=== PATIENT | female | born 1950 | race Caucasian/White ===

== ENCOUNTER 2017-01-20 07:15 | Inpatient (IN) ==
[2017-01-20] MEDS: amLODIPine 5 MG TABLET PO SCH (21:18)
[2017-01-20] MEDS: Gabapentin 300 MG CAPSULE PO SCH (21:18)
[2017-01-20] MEDS: rOPINIRole 0.25 MG TABLET PO SCH (21:18)
[2017-01-20] MEDS: MAGNESIUM PO SCH (21:18)
[2017-01-20] MEDS: ZINC PO SCH (21:18)
[2017-01-20] MEDS: CALCIUM CARB PO SCH (21:18)
[2017-01-20] MEDS: *HR* Metformin 500 MG TABLET PO SCH (21:18)
[2017-01-20] MEDS: D3 PO SCH (21:18)
[2017-01-20] MEDS: traMADol 50 MG TABLET PO PRN (21:18)
[2017-01-21 05:44] LABS: Basophils % 0.3 %; Eosinophils # 0.3 K/mcL (0.0-0.6); Eosinophils % 3.8 %; Hematocrit 34.6 % (35.3-44.9); Hemoglobin 11.8 g/dL (11.5-15.4); Immature Granulocytes % 0.5 % (0-4); Lymphocytes % 22.4 %; Mean Corpuscular HGB Conc 34.1 g/dL (31.6-35.5); Mean Corpuscular Hemoglobin 29.2 pg (28.0-33.3); Mean Corpuscular Volume 85.6 fL (83.0-100.0); Mean Platelet Volume 9.5 fL (9.4-12.4); Monocytes # 0.8 K/mcL (0.0-1.3); Monocytes % 9.4 %; Neutrophils # 5.6 K/mcL (1.6-8.9); Platelet Count 417 K/mcL (140-400); Red Blood Count 4.04 M/mcL (3.82-4.97); Red Cell Distribution Width 13.5 % (11.5-14.5); Segmented Neutrophils % 63.6 %
[2017-01-21 05:46] LABS: INR 0.9
[2017-01-21 05:48] LABS: Activated Partial Thrombo Time 31.4 Seconds (26.0-36.0)
[2017-01-21 05:51] LABS: BUN/Creatinine Ratio 18 (6-26); Blood Urea Nitrogen 16 mg/dL (7-20); Calcium 9.1 mg/dL (8.6-10.8); Carbon Dioxide 21 mEq/L (19-29); Chloride 108 mEq/L (98-109); Glucose 223 mg/dL (70-99); Osmolality,Calculated 296 (280-300); Sodium 139 mEq/L (136-145); eGFR For African Americans > 60 (> 60); eGFR For Non-African Americans > 60 (> 60)
[2017-01-21] MEDS: *HR* Heparin 5,000 UNIT/ML VIAL SQ SCH ×3 (06:10→21:55)
[2017-01-21] MEDS: *HR* Metformin 500 MG TABLET PO SCH ×2 (08:47→18:22)
[2017-01-21] MEDS: Ibuprofen 200 MG TABLET PO PRN (08:48)
[2017-01-21] MEDS: (Krill/Om-3/Dha/Epa/Phospho/Ast [Krill Oil 1,000 Mg S) PO SCH (08:49)
[2017-01-21] MEDS: BuPROPion SR (12 HR) 100 MG TABLET PO SCH (08:50)
[2017-01-21] MEDS ORDERED: *HR* SitaGLIPtin 100 MG TABLET PO SCH (09:00)
--- NOTE | 2017-01-21 12:20 | Internal Med History&Physical ---
Date of Encounter: 01/21/17 Time of Encounter: 12:18 Assessment and Plan (1) Acute kidney injury Current visit: Yes Status: Chronic (2) Metatarsal bone fracture Current visit: Yes Status: Acute PT OT to work on transfer, safety, ambulation. Qualifiers: Encounter type: initial encounter Metatarsal bone: unspecified metatarsal Fracture type: closed Fracture alignment: nondisplaced Laterality: unspecified laterality Qualified Code(s): S92.309A - Fracture of unspecified metatarsal bone(s), unspecified foot, initial encounter for closed fracture (3) Talar fracture Current visit: Yes Status: Acute Qualifiers: Encounter type: initial encounter Fracture type: closed Talus location: unspecified portion of talus Fracture alignment: nondisplaced Laterality: unspecified laterality Qualified Code(s): S92.109A - Unspecified fracture of unspecified talus, initial encounter for closed fracture (4) Frequent falls Current visit: Yes Status: Chronic Frequent fall may be secondary to her frequent hypoglycemic spell Internal Medicine - H&P: HPI Admitted From: Intrahospital Transfer Plans for Post Hospital Care: Home History of present illness: Ms. Grey is a 66 year old female who initially presented to the ED on 522 for acute bilateral foot pain and multiple falls. He should not reports that she had been falling frequently. She thinks is because her blood sugar were dropped. She fell and knocked over a metal table which fell on her right foot. X-ray of the left foot showed an acute fracture involving the left fourth metatarsal, acute fracture involving the base of the fourth phalanx. X-ray of the foot showed acute fracture of the left talus. Foot fracture also noted. She is admitted here for rehabilitation. She is a history of hypertension, diabetes, history of TIA. Past Med Surg Social Fam HX - Past Medical History Medical history: diabetes, fibromyalgia, GERD, hypertension, TIA Psychiatric history: anxiety, depression - Past Surgical History Surgical History: breast surgery, cholecystectomy - Social History Smoking Status: Never smoker Smokeless Tobacco Status: No Alcohol use: none Drug use: none - Family History Mother Living Status: Hx Family Cardiac Disorders: Yes (heart attack) Hx Family Cancer: Yes (lymphatic sarcoma) Father Family Member Ethnicity: Non- Living Status: Hx Family Cardiac Disorders: No Hx Family Cancer: Yes (colon) Hx Family Endocrine Disorder: Yes (diabetes) Internal Medicine - H&P: Meds Calcium Carb/D3/Magnesium/Zinc [Elier Mag Zinc + D Tablet] 1 tab PO HS 01/16/17 [ History] Cyclobenzaprine HCl 10 mg PO HS 01/16/17 [History] Gabapentin [Neurontin] 300 mg PO QPM 01/16/17 [History] Ibuprofen [Advil] 200 mg PO BID PRN 01/16/17 [History] Krill/Om-3/Dha/Epa/Phospho/Ast [Krill Oil 1,000 mg Softgel] 1 cap PO DAILY 01/16 [History] Lisinopril [Zestril] 5 mg PO DAILY 01/16/17 [History] Metformin HCl [Metformin HCl ER] 500 mg PO BID 01/16/17 [History] Quetiapine Fumarate [Seroquel] 300 mg PO HS 01/16/17 [History] SitaGLIPtin [Januvia] 100 mg PO DAILY 01/16/17 [History] amLODIPine [Norvasc] 5 mg PO QPM 01/16/17 [History] buPROPion HCl [Bupropion HCl Sr] 200 mg PO DAILY 01/16/17 [History] rOPINIRole [Requip] 0.25 mg PO HS 01/16/17 [History] Tramadol HCl [Ultram] 50 mg PO QID PRN #10 tablet 01/20/17 [Rx] Allergies Penicillins [PCN] Allergy (Verified 01/13/17 16:29) Rash All Systems PM: A 10-system review of systems was performed and is negative for pertinent findings except as documented above in the HPI. - Constitutional Constitutional: falls, no chills, no fever(s), no night sweats - Cardiovascular Cardiovascular ROS IM: no chest pain, no diaphoresis, no dyspnea, no lightheadedness, no palpitations, no syncope - Respiratory Respiratory: no cough, no dyspnea, no wheezing, no excessive phlegm production - Gastrointestinal Gastrointestinal: no abdominal pain, no diarrhea, no hematemesis, no hematochezia, no melena, no nausea, no vomiting - Musculoskeletal Musculoskeletal ROS IM: arthralgias, limited range of motion - Constitutional Vitals: Temp Pulse Resp BP Pulse Ox 97.8 F 71 16 98/56 94 01/21/17 08:00 01/21/17 08:00 01/21/17 08:00 01/21/17 08:00 01/21/17 08:00 - Respiratory Respiratory exam: Present: CTAB. Absent: accessory muscle use, rales, rhonchi, wheezes - Cardiovascular Cardiovascular exam: Present: RRR, +S1, +S2. Absent: diastolic murmur, gallop, rubs, systolic murmur - GI/Abdominal GI/Abdominal exam: Present: normal bowel sounds, soft, no peritoneal signs. Absent: distended, tenderness - Expanded Lower Extremities Exam Foot/Toe exam: Present: ecchymosis Internal Med - H&P Results - Labs CBC & Chem 7: 01/21/17 05:15 01/21/17 05:15 Labs: Short CBC 01/21/17 Range/Units 05:15 WBC 8.8 (4.3-11.1) K/mcL Hgb 11.8 (11.5-15.4) g/dL Hct 34.6 L (35.3-44.9) % Plt Count 417 H (140-400) K/mcL Neutrophils # 5.6 (1.6-8.9) K/mcL BMP 01/21/17 05:15 Sodium 139 Potassium 4.0 Chloride 108 Carbon Dioxide 21 BUN 16 Creatinine 0.87 Glucose 223 H Calcium 9.1
[2017-01-21] MEDS: traMADol 50 MG TABLET PO PRN ×2 (12:29→18:25)
[2017-01-21] MEDS: Gabapentin 300 MG CAPSULE PO SCH (18:22)
[2017-01-21] MEDS: amLODIPine 5 MG TABLET PO SCH (18:22)
[2017-01-21] MEDS: MAGNESIUM PO SCH (21:48)
[2017-01-21] MEDS: ZINC PO SCH (21:48)
[2017-01-21] MEDS: CALCIUM CARB PO SCH (21:48)
[2017-01-21] MEDS: D3 PO SCH (21:48)
[2017-01-21] MEDS: rOPINIRole 0.25 MG TABLET PO SCH (21:55)
[2017-01-22] MEDS: *HR* Heparin 5,000 UNIT/ML VIAL SQ SCH ×3 (06:36→21:04)
[2017-01-22] MEDS: *HR* SitaGLIPtin 25 MG TABLET PO SCH (08:48)
[2017-01-22] MEDS: *HR* Metformin 500 MG TABLET PO SCH ×2 (08:48→16:50)
[2017-01-22] MEDS: (Krill/Om-3/Dha/Epa/Phospho/Ast [Krill Oil 1,000 Mg S) PO SCH (08:50)
[2017-01-22] MEDS: BuPROPion SR (12 HR) 100 MG TABLET PO SCH (08:50)
--- NOTE | 2017-01-22 14:07 | Internal Med Progress Note ---
Date of Encounter: 01/22/17 Time of Encounter: 14:06 - Assessment and plan (1) Metatarsal bone fracture Current Visit: Yes Status: Acute Assessment and plan: PT and OT working on transfer, safety, endurance. Improving ADL. Qualifiers: Encounter type: initial encounter Metatarsal bone: unspecified metatarsal Fracture type: closed Fracture alignment: nondisplaced Laterality: unspecified laterality Qualified Code(s): S92.309A - Fracture of unspecified metatarsal bone(s), unspecified foot, initial encounter for closed fracture (2) Acute kidney injury Current Visit: Yes Status: Chronic (3) Talar fracture Current Visit: Yes Status: Acute Qualifiers: Encounter type: initial encounter Fracture type: closed Talus location: unspecified portion of talus Fracture alignment: nondisplaced Laterality: unspecified laterality Qualified Code(s): S92.109A - Unspecified fracture of unspecified talus, initial encounter for closed fracture (4) Frequent falls Current Visit: Yes Status: Chronic - Time Spent With Patient less than 15 minutes - Subjective Interval history: Complains of feeling weak today without any energy. Pain is 4 out of 10. No shortness of breath. No chest pain. - Constitutional Vitals: Temp Pulse Resp BP Pulse Ox 97.8 F 101 14 101/67 94 01/22/17 08:00 01/22/17 08:00 01/22/17 08:00 01/22/17 08:00 01/22/17 08:00 General appearance: Present: A&O X 3, pleasant, no acute distress - Respiratory Respiratory exam: Present: CTAB. Absent: accessory muscle use, rales, rhonchi, wheezes - Cardiovascular Cardiovascular exam: Present: RRR, +S1, +S2. Absent: diastolic murmur, gallop, rubs, systolic murmur - GI/Abdominal GI/Abdominal exam: Present: normal bowel sounds, soft, no peritoneal signs. Absent: distended, tenderness - Neurological Exam Neurological exam: Present: oriented X3 Internal Medicine: Result - Labs CBC & Chem 7: 01/21/17 05:15 01/21/17 05:15 - ABG Interpretation ABG results: PT/INR, D-dimer PT 10.0 Seconds (9.4-12.1) 01/21/17 05:15 Consult Discharge Plan - Plan Referrals: Alex Edward DO [Primary Care Provider] -
[2017-01-22] MEDS: Ibuprofen 200 MG TABLET PO PRN (14:18)
[2017-01-22] MEDS: traMADol 50 MG TABLET PO PRN (16:49)
[2017-01-22] MEDS: amLODIPine 5 MG TABLET PO SCH (16:50)
[2017-01-22] MEDS: Gabapentin 300 MG CAPSULE PO SCH (16:50)
[2017-01-22] MEDS: rOPINIRole 0.25 MG TABLET PO SCH (21:03)
[2017-01-22] MEDS: MAGNESIUM PO SCH (21:16)
[2017-01-22] MEDS: D3 PO SCH (21:16)
[2017-01-22] MEDS: ZINC PO SCH (21:16)
[2017-01-22] MEDS: CALCIUM CARB PO SCH (21:16)
[2017-01-23 05:25] LABS: Basophils % 0.5 %; Eosinophils # 0.3 K/mcL (0.0-0.6); Eosinophils % 3.8 %; Hematocrit 33.8 % (35.3-44.9); Hemoglobin 11.5 g/dL (11.5-15.4); Immature Granulocytes % 0.9 % (0-4); Lymphocytes # 2.7 K/mcL (0.6-4.6); Lymphocytes % 33.5 %; Mean Corpuscular Hemoglobin 29.3 pg (28.0-33.3); Mean Platelet Volume 9.3 fL (9.4-12.4); Monocytes # 0.8 K/mcL (0.0-1.3); Monocytes % 10.6 %; Platelet Count 401 K/mcL (140-400); Red Blood Count 3.93 M/mcL (3.82-4.97); Red Cell Distribution Width 13.5 % (11.5-14.5); Segmented Neutrophils % 50.7 %
[2017-01-23 05:37] LABS: BUN/Creatinine Ratio 16 (6-26); Blood Urea Nitrogen 16 mg/dL (7-20); Calcium 8.9 mg/dL (8.6-10.8); Carbon Dioxide 24 mEq/L (19-29); Chloride 106 mEq/L (98-109); Glucose 174 mg/dL (70-99); Osmolality,Calculated 293 (280-300); Potassium 4.5 mEq/L (3.5-4.5); Sodium 139 mEq/L (136-145); eGFR For African Americans > 60 (> 60); eGFR For Non-African Americans 53 (> 60)
[2017-01-23] MEDS: traMADol 50 MG TABLET PO PRN ×3 (05:42→21:09)
[2017-01-23] MEDS: *HR* Heparin 5,000 UNIT/ML VIAL SQ SCH ×3 (05:42→21:08)
[2017-01-23] MEDS: (Krill/Om-3/Dha/Epa/Phospho/Ast [Krill Oil 1,000 Mg S) PO SCH (07:46)
[2017-01-23] MEDS: *HR* SitaGLIPtin 25 MG TABLET PO SCH (08:05)
[2017-01-23] MEDS: BuPROPion SR (12 HR) 100 MG TABLET PO SCH (08:05)
[2017-01-23] MEDS: *HR* Metformin 500 MG TABLET PO SCH ×2 (08:05→16:31)
--- NOTE | 2017-01-23 10:01 | Internal Med Progress Note ---
Date of Encounter: 01/23/17 Time of Encounter: 10:00 - Assessment and plan (1) Metatarsal bone fracture Current Visit: Yes Status: Acute Assessment and plan: PT and OT working on transfer, safety, endurance. Improving ADL. Qualifiers: Encounter type: initial encounter Metatarsal bone: unspecified metatarsal Fracture type: closed Fracture alignment: nondisplaced Laterality: unspecified laterality Qualified Code(s): S92.309A - Fracture of unspecified metatarsal bone(s), unspecified foot, initial encounter for closed fracture (2) Acute kidney injury Current Visit: Yes Status: Chronic (3) Talar fracture Current Visit: Yes Status: Acute Qualifiers: Encounter type: initial encounter Fracture type: closed Talus location: unspecified portion of talus Fracture alignment: nondisplaced Laterality: unspecified laterality Qualified Code(s): S92.109A - Unspecified fracture of unspecified talus, initial encounter for closed fracture (4) Frequent falls Current Visit: Yes Status: Chronic - Subjective Interval history: Feeling better today. Mild foot pain. No shortness of breath. No chest pain. No nausea vomiting. Pain is 4 out of 10. No shortness of breath. No chest pain. - Constitutional Vitals: Temp Pulse Resp BP Pulse Ox 98.2 F 81 18 105/68 94 01/23/17 07:40 01/23/17 07:40 01/23/17 07:40 01/23/17 07:40 01/23/17 07:40 General appearance: Present: A&O X 3, pleasant, no acute distress - Respiratory Respiratory exam: Present: CTAB. Absent: accessory muscle use, rales, rhonchi, wheezes - Cardiovascular Cardiovascular exam: Present: RRR, +S1, +S2. Absent: diastolic murmur, gallop, rubs, systolic murmur - GI/Abdominal GI/Abdominal exam: Present: normal bowel sounds, soft, no peritoneal signs. Absent: distended, tenderness - Expanded Lower Extremities Exam Foot/Toe exam: Present: tenderness Internal Medicine: Result - Labs CBC & Chem 7: 01/23/17 04:45 01/23/17 04:45 Labs: Short CBC 01/23/17 Range/Units 04:45 WBC 7.9 (4.3-11.1) K/mcL Hgb 11.5 (11.5-15.4) g/dL Hct 33.8 L (35.3-44.9) % Plt Count 401 H (140-400) K/mcL Neutrophils # 4.0 (1.6-8.9) K/mcL BMP 01/23/17 04:45 Sodium 139 Potassium 4.5 Chloride 106 Carbon Dioxide 24 BUN 16 Creatinine 1.03 Glucose 174 H Calcium 8.9 - ABG Interpretation ABG results: PT/INR, D-dimer PT 10.0 Seconds (9.4-12.1) 01/21/17 05:15 Consult Discharge Plan - Plan Referrals: Alex Edward DO [Primary Care Provider] -
[2017-01-23] MEDS: Ibuprofen 200 MG TABLET PO PRN ×2 (10:45→21:08)
[2017-01-23] MEDS: amLODIPine 5 MG TABLET PO SCH (16:31)
[2017-01-23] MEDS: Gabapentin 300 MG CAPSULE PO SCH (16:31)
[2017-01-23] MEDS: rOPINIRole 0.25 MG TABLET PO SCH (21:08)
[2017-01-23] MEDS: D3 PO SCH (21:18)
[2017-01-23] MEDS: ZINC PO SCH (21:18)
[2017-01-23] MEDS: CALCIUM CARB PO SCH (21:18)
[2017-01-23] MEDS: MAGNESIUM PO SCH (21:18)
[2017-01-24] MEDS: *HR* Heparin 5,000 UNIT/ML VIAL SQ SCH ×3 (05:38→22:41)
[2017-01-24] MEDS: *HR* Metformin 500 MG TABLET PO SCH ×2 (08:17→17:14)
[2017-01-24] MEDS: BuPROPion SR (12 HR) 100 MG TABLET PO SCH (08:17)
[2017-01-24] MEDS: *HR* SitaGLIPtin 25 MG TABLET PO SCH (08:17)
[2017-01-24] MEDS: (Krill/Om-3/Dha/Epa/Phospho/Ast [Krill Oil 1,000 Mg S) PO SCH (08:19)
[2017-01-24] MEDS: traMADol 50 MG TABLET PO PRN ×2 (10:27→22:39)
[2017-01-24] MEDS: Ibuprofen 200 MG TABLET PO PRN (12:08)
--- NOTE | 2017-01-24 13:15 | Internal Med Progress Note ---
Date of Encounter: 01/24/17 Time of Encounter: 13:13 - Assessment and plan (1) Metatarsal bone fracture Current Visit: Yes Status: Acute Assessment and plan: Fractures are healing patient is orthopedic shoes and is able to walk. Qualifiers: Encounter type: initial encounter Metatarsal bone: unspecified metatarsal Fracture type: closed Fracture alignment: nondisplaced Laterality: unspecified laterality Qualified Code(s): S92.309A - Fracture of unspecified metatarsal bone(s), unspecified foot, initial encounter for closed fracture (2) Talar fracture Current Visit: Yes Status: Acute Assessment and plan: This is noted Qualifiers: Encounter type: initial encounter Fracture type: closed Talus location: unspecified portion of talus Fracture alignment: nondisplaced Laterality: unspecified laterality Qualified Code(s): S92.109A - Unspecified fracture of unspecified talus, initial encounter for closed fracture (3) Frequent falls Current Visit: Yes Status: Chronic Assessment and plan: Right now are watching this closely (4) Dehydration Current Visit: No Status: Acute Assessment and plan: This result - Time Spent With Patient less than 15 minutes - Subjective Interval history: Patient states she had low blood sugar and has no . Not sure how she fractured her feet. She states they are sore but when she is up on her feet planted firmly it is tolerable. She is working with a therapist memory of her fall - Constitutional Vitals: Temp Pulse Resp BP Pulse Ox 98.2 F 95 16 115/70 95 01/24/17 07:00 01/24/17 07:00 01/24/17 07:00 01/24/17 07:00 01/24/17 07:00 General appearance: Present: A&O X 3, pleasant, no acute distress - Head Head exam: Present: atraumatic, normal inspection, normocephalic - Neck Neck exam general surgery: Present: supple, trachea midline. Absent: lymphadenopathy - Respiratory Respiratory exam: Present: CTAB. Absent: accessory muscle use, rales, rhonchi, wheezes - Cardiovascular Cardiovascular exam: Present: RRR, +S1, +S2. Absent: diastolic murmur, gallop, rubs, systolic murmur Internal Medicine: Result - Labs CBC & Chem 7: 01/23/17 04:45 01/23/17 04:45 Labs: Abdomen looks stable - ABG Interpretation ABG results: PT/INR, D-dimer PT 10.0 Seconds (9.4-12.1) 01/21/17 05:15 Consult Discharge Plan - Plan Referrals: Alex Edward DO [Primary Care Provider] -
[2017-01-24] MEDS: Gabapentin 300 MG CAPSULE PO SCH (17:14)
[2017-01-24] MEDS: amLODIPine 5 MG TABLET PO SCH (17:14)
[2017-01-24] MEDS: rOPINIRole 0.25 MG TABLET PO SCH (22:40)
[2017-01-25] MEDS: MAGNESIUM PO SCH ×2 (02:40→20:45)
[2017-01-25] MEDS: ZINC PO SCH ×2 (02:40→20:45)
[2017-01-25] MEDS: CALCIUM CARB PO SCH ×2 (02:40→20:45)
[2017-01-25] MEDS: D3 PO SCH ×2 (02:40→20:45)
[2017-01-25] MEDS: *HR* Heparin 5,000 UNIT/ML VIAL SQ SCH ×3 (06:40→20:44)
[2017-01-25] MEDS: *HR* Metformin 500 MG TABLET PO SCH ×2 (08:34→16:58)
[2017-01-25] MEDS: (Krill/Om-3/Dha/Epa/Phospho/Ast [Krill Oil 1,000 Mg S) PO SCH (08:35)
[2017-01-25] MEDS: BuPROPion SR (12 HR) 100 MG TABLET PO SCH (08:35)
[2017-01-25] MEDS: *HR* SitaGLIPtin 25 MG TABLET PO SCH (08:35)
[2017-01-25] MEDS: traMADol 50 MG TABLET PO PRN (10:25)
[2017-01-25] MEDS: Ibuprofen 600 MG TABLET PO PRN (11:53)
--- NOTE | 2017-01-25 13:48 | Internal Med Progress Note ---
Date of Encounter: 01/25/17 Time of Encounter: 13:46 - Assessment and plan (1) Metatarsal bone fracture Current Visit: Yes Status: Acute Assessment and plan: Patient has bilateral foot fractures from falls. She has no memory of that due to low blood sugars. Qualifiers: Encounter type: initial encounter Metatarsal bone: unspecified metatarsal Fracture type: closed Fracture alignment: nondisplaced Laterality: unspecified laterality Qualified Code(s): S92.309A - Fracture of unspecified metatarsal bone(s), unspecified foot, initial encounter for closed fracture (2) Talar fracture Current Visit: Yes Status: Acute Assessment and plan: Same as above. Patient fell and injured her feet. Qualifiers: Encounter type: initial encounter Fracture type: closed Talus location: unspecified portion of talus Fracture alignment: nondisplaced Laterality: unspecified laterality Qualified Code(s): S92.109A - Unspecified fracture of unspecified talus, initial encounter for closed fracture (3) Frequent falls Current Visit: Yes Status: Chronic Assessment and plan: Record falls probably secondary to low blood sugars noncompliance. (4) Dehydration Current Visit: No Status: Acute Assessment and plan: Resolved - Time Spent With Patient less than 15 minutes - Subjective Interval history: pt working with therapists. - Constitutional Vitals: Temp Pulse Resp BP Pulse Ox 98.0 F 98 18 102/66 93 01/25/17 07:33 01/25/17 07:33 01/25/17 07:33 01/25/17 07:33 01/25/17 07:33 General appearance: Present: A&O X 3, pleasant, no acute distress - Head Head exam: Present: atraumatic, normal inspection, normocephalic - Neck Neck exam general surgery: Present: supple, trachea midline. Absent: lymphadenopathy - Respiratory Respiratory exam: Present: CTAB. Absent: accessory muscle use, rales, rhonchi, wheezes - Cardiovascular Cardiovascular exam: Present: RRR, +S1, +S2. Absent: diastolic murmur, gallop, rubs, systolic murmur Internal Medicine: Result - Labs CBC & Chem 7: 01/23/17 04:45 01/23/17 04:45 - ABG Interpretation ABG results: PT/INR, D-dimer PT 10.0 Seconds (9.4-12.1) 01/21/17 05:15 Consult Discharge Plan - Plan Referrals: lAex Edward DO [Primary Care Provider] -
[2017-01-25] MEDS: Gabapentin 300 MG CAPSULE PO SCH (16:58)
[2017-01-25] MEDS: amLODIPine 5 MG TABLET PO SCH (16:58)
[2017-01-25] MEDS: rOPINIRole 0.25 MG TABLET PO SCH (20:44)
[2017-01-26] MEDS: *HR* Heparin 5,000 UNIT/ML VIAL SQ SCH ×3 (05:50→20:56)
[2017-01-26] MEDS: *HR* Metformin 500 MG TABLET PO SCH ×2 (09:14→16:45)
[2017-01-26] MEDS: *HR* SitaGLIPtin 25 MG TABLET PO SCH (09:14)
[2017-01-26] MEDS: BuPROPion SR (12 HR) 100 MG TABLET PO SCH (09:14)
[2017-01-26] MEDS: (Krill/Om-3/Dha/Epa/Phospho/Ast [Krill Oil 1,000 Mg S) PO SCH (09:15)
[2017-01-26] MEDS: Ibuprofen 600 MG TABLET PO PRN (11:27)
--- NOTE | 2017-01-26 13:27 | Internal Med Progress Note ---
Date of Encounter: 01/26/17 Time of Encounter: 13:25 - Assessment and plan (1) Metatarsal bone fracture Current Visit: Yes Status: Acute Assessment and plan: Trying shoes today. Patient is able to ambulate household distances Qualifiers: Encounter type: initial encounter Metatarsal bone: unspecified metatarsal Fracture type: closed Fracture alignment: nondisplaced Laterality: unspecified laterality Qualified Code(s): S92.309A - Fracture of unspecified metatarsal bone(s), unspecified foot, initial encounter for closed fracture (2) Talar fracture Current Visit: Yes Status: Acute Assessment and plan: Patient is able to ambulate household distances. Qualifiers: Encounter type: initial encounter Fracture type: closed Talus location: unspecified portion of talus Fracture alignment: nondisplaced Laterality: unspecified laterality Qualified Code(s): S92.109A - Unspecified fracture of unspecified talus, initial encounter for closed fracture (3) Frequent falls Current Visit: Yes Status: Chronic Assessment and plan: Sugars could be part of the problem. (4) Dehydration Current Visit: No Status: Acute Assessment and plan: Resolved - Time Spent With Patient less than 15 minutes - Subjective Interval history: pt working with therapists. We will try wearing shoes today to see how goes . patient is going home tomorrow - Constitutional Vitals: Temp Pulse Resp BP Pulse Ox 97.7 F 97 18 99/58 93 01/26/17 07:24 01/26/17 07:24 01/26/17 07:24 01/26/17 07:24 01/26/17 07:24 General appearance: Present: A&O X 3, pleasant, no acute distress - Head Head exam: Present: atraumatic, normal inspection, normocephalic - Respiratory Respiratory exam: Present: CTAB. Absent: accessory muscle use, rales, rhonchi, wheezes - Cardiovascular Cardiovascular exam: Present: RRR, +S1, +S2. Absent: diastolic murmur, gallop, rubs, systolic murmur Internal Medicine: Result - Labs CBC & Chem 7: 01/23/17 04:45 01/23/17 04:45 Labs: The stable - ABG Interpretation ABG results: PT/INR, D-dimer PT 10.0 Seconds (9.4-12.1) 01/21/17 05:15 Consult Discharge Plan - Plan Referrals: Ros Montesinos MD [Partnered Physician] - 02/24/17 3:00 pm (follow up appointment) Alex Edward DO [Primary Care Provider] - 02/07/17 1:30 pm (follow up appointment)
--- NOTE | 2017-01-26 13:29 | Physician Discharge Referral ---
Home Health/Hosp Referral Info Transfer to: Home Health Provider in Charge Post Discharge: PCP - Diagnosis (1) Metatarsal bone fracture Priority: Primary Status: Acute (2) Talar fracture Priority: Primary Status: Acute (3) Frequent falls Priority: Secondary Status: Chronic (4) Dehydration Priority: Secondary Status: Acute - Respiratory Orders Smoking Cessation: Smoking cessation has been advised. For more information, call the [place] Tobacco Quit Line at 1-191-DDNI-NOW. - Diet/Nutrition Diet/Nutrition Orders: No Concentrated Sweets - Activity Activity Orders: Ambulate - Services Needed Following services are medically necessary services: Nursing, Physical Therapy - Transfer Medications Home Medications: Calcium Carb/D3/Magnesium/Zinc [Elier Mag Zinc + D Tablet] 1 tab PO HS 01/16/17 [ History] Cyclobenzaprine HCl 10 mg PO HS 01/16/17 [History] Gabapentin [Neurontin] 300 mg PO QPM 01/16/17 [History] Ibuprofen [Advil] 200 mg PO BID PRN 01/16/17 [History] Krill/Om-3/Dha/Epa/Phospho/Ast [Krill Oil 1,000 mg Softgel] 1 cap PO DAILY 01/16 [History] Lisinopril [Zestril] 5 mg PO DAILY 01/16/17 [History] Metformin HCl [Metformin HCl ER] 500 mg PO BID 01/16/17 [History] Quetiapine Fumarate [Seroquel] 300 mg PO HS 01/16/17 [History] SitaGLIPtin [Januvia] 100 mg PO DAILY 01/16/17 [History] amLODIPine [Norvasc] 5 mg PO QPM 01/16/17 [History] buPROPion HCl [Bupropion HCl Sr] 200 mg PO DAILY 01/16/17 [History] rOPINIRole [Requip] 0.25 mg PO HS 01/16/17 [History] Tramadol HCl [Ultram] 50 mg PO QID PRN #10 tablet 01/20/17 [Rx] Allergies/Adverse Reactions: Allergies Penicillins [PCN] Allergy (Verified 01/13/17 16:29) Rash Certification: Further, I certify that my clinical findings support that this patient is homebound (i.e. absences from home require considerable and taxing effort and are for medical reasons or advent services or infrequently or short duration when for other reasons) because: Homebound Reason: Patient requires assistance of a person or device to safely leave home Attestation: My signature below is to certify that this patient is under my care and that I, or nurse practitioner, or a physician's retail assistant manager working with me, has a face-to -face encounter with this patient.
[2017-01-26] MEDS: Gabapentin 300 MG CAPSULE PO SCH (16:45)
[2017-01-26] MEDS: amLODIPine 5 MG TABLET PO SCH (16:45)
[2017-01-26] MEDS: MAGNESIUM PO SCH (20:55)
[2017-01-26] MEDS: CALCIUM CARB PO SCH (20:55)
[2017-01-26] MEDS: ZINC PO SCH (20:55)
[2017-01-26] MEDS: D3 PO SCH (20:55)
[2017-01-26] MEDS: traMADol 50 MG TABLET PO PRN (20:56)
[2017-01-26] MEDS: rOPINIRole 0.25 MG TABLET PO SCH (20:56)
[2017-01-27] MEDS: *HR* Heparin 5,000 UNIT/ML VIAL SQ SCH ×3 (06:45→20:47)
[2017-01-27] MEDS: *HR* Metformin 500 MG TABLET PO SCH ×2 (08:04→16:59)
[2017-01-27] MEDS: BuPROPion SR (12 HR) 100 MG TABLET PO SCH (08:05)
[2017-01-27] MEDS: (Krill/Om-3/Dha/Epa/Phospho/Ast [Krill Oil 1,000 Mg S) PO SCH (08:05)
[2017-01-27] MEDS: *HR* SitaGLIPtin 25 MG TABLET PO SCH (08:05)
[2017-01-27] MEDS: Ibuprofen 600 MG TABLET PO PRN (11:05)
--- NOTE | 2017-01-27 13:44 | Internal Med Progress Note ---
Date of Encounter: 01/27/17 Time of Encounter: 13:43 - Assessment and plan (1) Metatarsal bone fracture Current Visit: Yes Status: Acute Assessment and plan: All much improved issues are giving her good support. Qualifiers: Encounter type: initial encounter Metatarsal bone: unspecified metatarsal Fracture type: closed Fracture alignment: nondisplaced Laterality: unspecified laterality Qualified Code(s): S92.309A - Fracture of unspecified metatarsal bone(s), unspecified foot, initial encounter for closed fracture (2) Talar fracture Current Visit: Yes Status: Acute Qualifiers: Encounter type: initial encounter Fracture type: closed Talus location: unspecified portion of talus Fracture alignment: nondisplaced Laterality: unspecified laterality Qualified Code(s): S92.109A - Unspecified fracture of unspecified talus, initial encounter for closed fracture (3) Frequent falls Current Visit: Yes Status: Chronic Assessment and plan: She is not falling her balance is improved sounds her strength (4) Dehydration Current Visit: No Status: Acute Assessment and plan: Resolve - Time Spent With Patient less than 15 minutes - Subjective Interval history: Wearing shoes good support not causing any discomfort doing well. Will go home tomorrow - Constitutional Vitals: Temp Pulse Resp BP Pulse Ox 97.9 F 73 18 107/69 99 01/27/17 07:46 01/27/17 07:46 01/27/17 07:46 01/27/17 07:46 01/27/17 07:46 General appearance: Present: A&O X 3, pleasant, no acute distress - Head Head exam: Present: atraumatic, normal inspection, normocephalic - Neck Neck exam general surgery: Present: supple, trachea midline. Absent: lymphadenopathy - Respiratory Respiratory exam: Present: CTAB. Absent: accessory muscle use, rales, rhonchi, wheezes - Cardiovascular Cardiovascular exam: Present: RRR, +S1, +S2. Absent: diastolic murmur, gallop, rubs, systolic murmur Internal Medicine: Result - Labs CBC & Chem 7: 01/23/17 04:45 01/23/17 04:45 Labs: Habits stable - ABG Interpretation ABG results: PT/INR, D-dimer PT 10.0 Seconds (9.4-12.1) 01/21/17 05:15 Consult Discharge Plan - Plan Referrals: lab,lab [Other] - 01/31/17 1:00 pm Ros Montesinos MD [Partnered Physician] - 02/24/17 3:00 pm (follow up appointment) Alex Edward DO [Primary Care Provider] - 02/07/17 1:30 pm (follow up appointment)
[2017-01-27] MEDS: Gabapentin 300 MG CAPSULE PO SCH (16:58)
[2017-01-27] MEDS: amLODIPine 5 MG TABLET PO SCH (16:59)
[2017-01-27] MEDS: ZINC PO SCH (20:46)
[2017-01-27] MEDS: CALCIUM CARB PO SCH (20:46)
[2017-01-27] MEDS: MAGNESIUM PO SCH (20:46)
[2017-01-27] MEDS: D3 PO SCH (20:46)
[2017-01-27] MEDS: rOPINIRole 0.25 MG TABLET PO SCH (20:46)
[2017-01-27] MEDS: traMADol 50 MG TABLET PO PRN (20:48)
[2017-01-28] MEDS: *HR* Heparin 5,000 UNIT/ML VIAL SQ SCH (05:14)
[2017-01-28 07:32] VITALS: BP 101/66
[2017-01-28] MEDS: BuPROPion SR (12 HR) 100 MG TABLET PO SCH (08:57)
[2017-01-28] MEDS: *HR* SitaGLIPtin 25 MG TABLET PO SCH (08:57)
[2017-01-28] MEDS: *HR* Metformin 500 MG TABLET PO SCH (08:57)
[2017-01-28] MEDS: (Krill/Om-3/Dha/Epa/Phospho/Ast [Krill Oil 1,000 Mg S) PO SCH (08:58)
[2017-01-28] MEDS: traMADol 50 MG TABLET PO PRN (12:01)
--- NOTE | 2017-02-07 16:19 | Discharge Summary ---
Date of Encounter: 02/07/17 Time of Encounter: 16:18 - Discharge Diagnosis (1) Metatarsal bone fracture Priority: Primary Status: Acute Qualifiers: Encounter type: initial encounter Metatarsal bone: unspecified metatarsal Fracture type: closed Fracture alignment: nondisplaced Laterality: unspecified laterality Qualified Code(s): S92.309A - Fracture of unspecified metatarsal bone(s), unspecified foot, initial encounter for closed fracture (2) Acute kidney injury Priority: Primary Status: Chronic (3) Talar fracture Priority: Primary Status: Acute Qualifiers: Encounter type: initial encounter Fracture type: closed Talus location: unspecified portion of talus Fracture alignment: nondisplaced Laterality: unspecified laterality Qualified Code(s): S92.109A - Unspecified fracture of unspecified talus, initial encounter for closed fracture (4) Frequent falls Priority: Primary Status: Chronic - Discharge Medications Home Medications: Calcium Carb/D3/Magnesium/Zinc [Elier Mag Zinc + D Tablet] 1 tab PO HS 01/16/17 [ History] Cyclobenzaprine HCl 10 mg PO HS 01/16/17 [History] Gabapentin [Neurontin] 300 mg PO QPM 01/16/17 [History] Ibuprofen [Advil] 200 mg PO BID PRN 01/16/17 [History] Krill/Om-3/Dha/Epa/Phospho/Ast [Krill Oil 1,000 mg Softgel] 1 cap PO DAILY 01/16 [History] Lisinopril [Zestril] 5 mg PO DAILY 01/16/17 [History] Metformin HCl [Metformin HCl ER] 500 mg PO BID 01/16/17 [History] Quetiapine Fumarate [Seroquel] 300 mg PO HS 01/16/17 [History] SitaGLIPtin [Januvia] 100 mg PO DAILY 01/16/17 [History] amLODIPine [Norvasc] 5 mg PO QPM 01/16/17 [History] buPROPion HCl [Bupropion HCl Sr] 200 mg PO DAILY 01/16/17 [History] rOPINIRole [Requip] 0.25 mg PO HS 01/16/17 [History] Tramadol HCl [Ultram] 50 mg PO QID PRN #10 tablet 01/20/17 [Rx] Insulin Glargine [Lantus] 40 unit SQ HS 01/27/17 [History] Allergies/Adverse Reactions: Allergies Penicillins [PCN] Allergy (Verified 01/13/17 16:29) Rash Date of admission: 01/20/17 18:23 Primary care physician: Regino Paul Consults: 01/20/17 21:55 Consult to Occupational Therapy [CONS] Routine Comment: Evaluate, develop and implement POC Reason for Consult: rehab Consult to Physical Therapy [CONS] Routine Comment: Evaluate, develop and implement POC Reason for Consult: rehab Consult to Recreational Therapy [CONS] Routine Comment: Evaluate, develop and implement POC Consult to [employer] [CONS] Routine Reason for SW Consult: rehab - Patient Status Disposition: Home, Self-Care Condition: Good Overall status at discharge: patient is not back to baseline - Discharge Instructions Instructions: Diabetes Mellitus Type 2 in Adults (DC) Follow Up With: lab,lab [Other] - 01/31/17 1:00 pm Ros Montesinos MD [Partnered Physician] - 02/24/17 3:00 pm (follow up appointment) Alex Edward DO [Primary Care Provider] - 02/07/17 1:30 pm (follow up appointment) - Diet and Activity Activity: as per physical therapy Diet: advance to your usual diet Hospital course: Ms. Grey is a 66 year old female Ms. Grey is a 66 year old female who initially presented to the ED on 522 for acute bilateral foot pain and multiple falls. He should not reports that she had been falling frequently. She thinks is because her blood sugar were dropped. She fell and knocked over a metal table which fell on her right foot. X-ray of the left foot showed an acute fracture involving the left fourth metatarsal, acute fracture involving the base of the fourth phalanx. X-ray of the foot showed acute fracture of the left talus. Foot fracture also noted. She is admitted here for rehabilitation. Sh Time spent discussing smoking cessation with patient: more than 10 minutes - Time Spent with Patient Total time spent providing and/or coordinating discharge services: Less than 30 minutes - Constitutional Vitals: Temp Pulse Resp BP Pulse Ox 97.8 F 92 16 101/66 97 01/28/17 07:00 01/28/17 07:00 01/28/17 07:00 01/28/17 07:00 01/28/17 07:00 General appearance: Present: A&O X 3, pleasant, no acute distress - Respiratory Respiratory exam: Present: CTAB. Absent: accessory muscle use, rales, rhonchi, wheezes - Cardiovascular Cardiovascular exam: Present: RRR, +S1, +S2. Absent: diastolic murmur, gallop, rubs, systolic murmur - GI/Abdominal GI/Abdominal exam: Present: normal bowel sounds, soft, no peritoneal signs. Absent: distended, tenderness
== END 2017-01-28 12:40 | disposition home or self-care (01) | DRG 560 ==
LOC: INPGRE 18:23
PROVIDERS: ADMIT Internal Medicine; ATTEND Internal Medicine

== ENCOUNTER 2019-12-17 16:28 | Inpatient (IN) ==
[2019-12-17] MEDS ORDERED: [UNRECOGNIZED DRUG - OTHER] MC SCH (17:00)
[2019-12-17] MEDS: *HR* Metformin 500 MG TABLET PO SCH (18:06)
[2019-12-17] MEDS: QUEtiapine Fumarate 300 MG TABLET PO SCH (20:46)
[2019-12-17] MEDS: Gabapentin 300 MG CAPSULE PO SCH (20:46)
[2019-12-18 05:35] LABS: Basophils % 0.4 %; Eosinophils # 0.2 K/mcL (0.0-0.6); Eosinophils % 1.6 %; Hematocrit 32.3 % (35.3-44.9); Hemoglobin 10.2 g/dL (11.5-15.4); Immature Granulocytes % 1.2 % (0-4); Lymphocytes # 1.6 K/mcL (0.6-4.6); Lymphocytes % 15.3 %; Mean Corpuscular HGB Conc 31.6 g/dL (31.6-35.5); Mean Corpuscular Hemoglobin 29.8 pg (28.0-33.3); Mean Corpuscular Volume 94.4 fL (83.0-100.0); Mean Platelet Volume 9.3 fL (9.4-12.4); Monocytes # 0.8 K/mcL (0.0-1.3); Monocytes % 7.7 %; Neutrophils # 7.8 K/mcL (1.6-8.9); Platelet Count 433 K/mcL (140-400); Red Blood Count 3.42 M/mcL (3.82-4.97); Red Cell Distribution Width 14.2 % (11.5-14.5); Segmented Neutrophils % 73.8 %; White Blood Count 10.6 K/mcL (4.3-11.1)
[2019-12-18 05:49] LABS: Alanine Aminotransferase 11 Units/L (7-52); Albumin 2.9 g/dL (3.5-5.7); Albumin/Globulin Ratio 1.3 (1.1-2.2); Alkaline Phosphatase 69 Units/L (34-104); Aspartate Amino Transferase 11 Units/L (13-39); BUN/Creatinine Ratio 11 (6-26); Bilirubin,Total 0.3 mg/dL (0.3-1.0); Blood Urea Nitrogen 9 mg/dL (8-23); Calcium 8.1 mg/dL (8.6-10.3); Carbon Dioxide 25 mEq/L (23-29); Chloride 104 mEq/L (98-107); Globulin 2.2 g/dL (2.4-3.5); Glucose 206 mg/dL (70-105); Osmolality,Calculated 295 (280-300); Potassium 3.5 mEq/L (3.5-5.1); Sodium 140 mEq/L (136-145); Total Protein 5.1 g/dL (6.4-8.9); eGFR For African Americans > 60 (> 60); eGFR For Non-African Americans > 60 (> 60)
[2019-12-18] MEDS: Insulin LISPRO 300 UNITS/3 ML VIAL SQ SCH ×4 (08:20→21:18)
[2019-12-18] MEDS: amLODIPine 5 MG TABLET PO SCH (08:20)
[2019-12-18] MEDS: lisinopriL 5 MG TABLET PO SCH (08:20)
[2019-12-18] MEDS: Aspirin 81 MG TAB.CHEW PO SCH (08:20)
[2019-12-18] MEDS: *HR* Metformin 500 MG TABLET PO SCH ×2 (08:20→17:00)
[2019-12-18] MEDS ORDERED: Insulin DETEMIR 100 UNIT/ML X5UNITS SQ SCH (09:00)
[2019-12-18 10:33] LABS: Amylase 13 Units/L (29-103); Lipase 14 Units/L (11-82)
[2019-12-18] MEDS ORDERED: Dextrose Gel 15 GM/37.5 ML TUBE PO ONE (16:57)
[2019-12-18] MEDS ORDERED: *HR* Dextrose 50 % in Water (Syg) 50 ML SYRINGE IVP PRN (17:11)
[2019-12-18] MEDS ORDERED: D5% in Water 1,000 ML IVC PRN (17:11)
[2019-12-18] MEDS ORDERED: Dextrose Gel 15 GM/37.5 ML TUBE PO PRN ×2 (17:11)
[2019-12-18] MEDS: QUEtiapine Fumarate 300 MG TABLET PO SCH (21:18)
[2019-12-18] MEDS: Gabapentin 300 MG CAPSULE PO SCH (21:18)
[2019-12-18] MEDS: Insulin DETEMIR 100 UNIT/ML X5UNITS SQ SCH (21:18)
[2019-12-19 05:48] LABS: Hematocrit 29.1 % (35.3-44.9); Hemoglobin 9.3 g/dL (11.5-15.4); Mean Corpuscular Hemoglobin 29.6 pg (28.0-33.3); Mean Corpuscular Volume 92.7 fL (83.0-100.0); Mean Platelet Volume 9.1 fL (9.4-12.4); Platelet Count 424 K/mcL (140-400); Red Blood Count 3.14 M/mcL (3.82-4.97); White Blood Count 10.2 K/mcL (4.3-11.1)
[2019-12-19 06:12] LABS: Alanine Aminotransferase 9 Units/L (7-52); Albumin 2.7 g/dL (3.5-5.7); Albumin/Globulin Ratio 1.2 (1.1-2.2); Alkaline Phosphatase 96 Units/L (34-104); Aspartate Amino Transferase 10 Units/L (13-39); BUN/Creatinine Ratio 12 (6-26); Bilirubin,Total 0.2 mg/dL (0.3-1.0); Blood Urea Nitrogen 9 mg/dL (8-23); Calcium 7.7 mg/dL (8.6-10.3); Carbon Dioxide 30 mEq/L (23-29); Chloride 106 mEq/L (98-107); Globulin 2.3 g/dL (2.4-3.5); Glucose 295 mg/dL (70-105); Magnesium 1.8 mg/dL (1.6-2.6); Osmolality,Calculated 302 (280-300); Potassium 3.3 mEq/L (3.5-5.1); Sodium 141 mEq/L (136-145); eGFR For African Americans > 60 (> 60); eGFR For Non-African Americans > 60 (> 60)
[2019-12-19] MEDS: lisinopriL 5 MG TABLET PO SCH (07:54)
[2019-12-19] MEDS: amLODIPine 5 MG TABLET PO SCH (07:54)
[2019-12-19] MEDS: *HR* Metformin 500 MG TABLET PO SCH ×2 (07:54→16:22)
[2019-12-19] MEDS: Aspirin 81 MG TAB.CHEW PO SCH (07:54)
[2019-12-19] MEDS: Insulin LISPRO 300 UNITS/3 ML VIAL SQ SCH ×4 (07:55→22:43)
[2019-12-19] MEDS: Magnesium Oxide 400 MG TABLET PO SCH (09:37)
[2019-12-19] MEDS: Insulin DETEMIR 100 UNIT/ML X5UNITS SQ SCH ×2 (09:37→22:43)
[2019-12-19] MEDS: levoFLOXacin 750 MG/150 ML 750 MG/150 ML BAG IVPB SCH (16:21)
[2019-12-19] MEDS: Ipratropium/Albuterol Neb 3 ML IH SCH (20:29)
[2019-12-19] MEDS ORDERED: Racepinephrine Neb 0.5 ML VIAL IH ONE ×2 (21:13→21:19)
[2019-12-19] MEDS ORDERED: Sodium Chloride for inhalation 3 ML VIAL ONE (21:20)
[2019-12-19] MEDS: Gabapentin 300 MG CAPSULE PO SCH (22:42)
[2019-12-19] MEDS: QUEtiapine Fumarate 300 MG TABLET PO SCH (22:42)
[2019-12-20] MEDS: Ipratropium/Albuterol Neb 3 ML IH SCH (02:51)
[2019-12-20 05:18] LABS: Hematocrit 30.1 % (35.3-44.9); Hemoglobin 9.8 g/dL (11.5-15.4); Mean Corpuscular HGB Conc 32.6 g/dL (31.6-35.5); Mean Corpuscular Hemoglobin 30.5 pg (28.0-33.3); Mean Corpuscular Volume 93.8 fL (83.0-100.0); Mean Platelet Volume 9.3 fL (9.4-12.4); Platelet Count 459 K/mcL (140-400); Red Blood Count 3.21 M/mcL (3.82-4.97); Red Cell Distribution Width 13.9 % (11.5-14.5); White Blood Count 8.7 K/mcL (4.3-11.1)
[2019-12-20 05:35] LABS: BUN/Creatinine Ratio 13 (6-26); Blood Urea Nitrogen 9 mg/dL (8-23); Calcium 8.1 mg/dL (8.6-10.3); Carbon Dioxide 29 mEq/L (23-29); Chloride 104 mEq/L (98-107); Glucose 258 mg/dL (70-105); Magnesium 1.7 mg/dL (1.6-2.6); Osmolality,Calculated 300 (280-300); Potassium 3.7 mEq/L (3.5-5.1); Sodium 141 mEq/L (136-145); eGFR For African Americans > 60 (> 60); eGFR For Non-African Americans > 60 (> 60)
[2019-12-20] MEDS: Aspirin 81 MG TAB.CHEW PO SCH (07:54)
[2019-12-20] MEDS: lisinopriL 5 MG TABLET PO SCH (07:55)
[2019-12-20] MEDS: amLODIPine 5 MG TABLET PO SCH (07:55)
[2019-12-20] MEDS: Magnesium Oxide 400 MG TABLET PO SCH (07:55)
[2019-12-20] MEDS: *HR* Metformin 500 MG TABLET PO SCH ×2 (07:55→16:38)
[2019-12-20] MEDS: Insulin LISPRO 300 UNITS/3 ML VIAL SQ SCH ×4 (08:01→22:48)
[2019-12-20] MEDS: Insulin DETEMIR 100 UNIT/ML X5UNITS SQ SCH ×2 (08:22→20:31)
[2019-12-20 10:24] LABS: Adenovirus Not Detected (Not Detect); Bordetella Pertussis Not Detected (Not Detect); Chlamydophila pneumoniae Not Detected (Not Detect); Coronavirus 229E Not Detected (Not Detect); Coronavirus HKU1 Not Detected (Not Detect); Coronavirus NL63 Not Detected (Not Detect); Coronavirus OC43 Not Detected (Not Detect); Human Metapneumovirus Not Detected (Not Detect); Human Rhinovirus/Enterovirus Not Detected (Not Detect); Influenza A Subtype 2009 H1 Not Detected (Not Detect); Influenza B Not Detected (Not Detect); Mycoplasma pneumoniae Not Detected (Not Detect); Parainfluenza Virus 1 Not Detected (Not Detect); Parainfluenza Virus 2 Not Detected (Not Detect); Parainfluenza Virus 3 Not Detected (Not Detect); Parainfluenza Virus 4 Not Detected (Not Detect); Respiratory Syncytial Virus Not Detected (Not Detect)
[2019-12-20] MEDS: levoFLOXacin 750 MG/150 ML 750 MG/150 ML BAG IVPB SCH (15:29)
[2019-12-20 15:50] LABS: Bilirubin,Urine Negative (Negative); Clarity,Urine Clear (Clear); Color,Urine Yellow (Yellow); Glucose,Urine (UA) 500 mg/dL (Normal); Ketones,Urine Negative (Negative); Leukocyte Esterase,Urine Negative (Negative); Nitrite,Urine Negative (Negative); Protein,Urine 30 mg/dL (Neg-Trace); Urobilinogen,Urine Normal (Normal)
[2019-12-20 16:17] LABS: Blood,Urine Negative (Negative)
[2019-12-20 16:22] LABS: Squamous Epithelial Cell,Urine Many per lpf (None-Few); WBC,Urine 0-3 per hpf (0-3)
[2019-12-20] MEDS: Nystatin SUSP 5 ML UD.LIQ PO SCH ×2 (16:38→20:32)
[2019-12-20] MEDS ORDERED: IPRATROPIUM/ALBUTEROL SULFATE 120 PUFF INHALER IH SCH (17:00)
[2019-12-20] MEDS: Ipratropium 1 PUFF INHALER IH SCH ×2 (17:18→23:12)
[2019-12-20] MEDS: QUEtiapine Fumarate 300 MG TABLET PO SCH (20:31)
[2019-12-20] MEDS: Gabapentin 300 MG CAPSULE PO SCH (20:32)
[2019-12-21] MEDS: Ipratropium 1 PUFF INHALER IH SCH ×4 (06:22→21:08)
[2019-12-21 06:38] LABS: Hematocrit 29.4 % (35.3-44.9); Hemoglobin 9.4 g/dL (11.5-15.4); Mean Corpuscular Volume 93.9 fL (83.0-100.0); Mean Platelet Volume 9.5 fL (9.4-12.4); Platelet Count 487 K/mcL (140-400); Red Blood Count 3.13 M/mcL (3.82-4.97); Red Cell Distribution Width 13.8 % (11.5-14.5); White Blood Count 8.1 K/mcL (4.3-11.1)
[2019-12-21 06:48] LABS: BUN/Creatinine Ratio 7 (6-26); Blood Urea Nitrogen 6 mg/dL (8-23); Calcium 8.3 mg/dL (8.6-10.3); Carbon Dioxide 34 mEq/L (23-29); Chloride 102 mEq/L (98-107); Glucose 193 mg/dL (70-105); Magnesium 1.6 mg/dL (1.6-2.6); Osmolality,Calculated 295 (280-300); Potassium 3.9 mEq/L (3.5-5.1); Sodium 141 mEq/L (136-145); eGFR For African Americans > 60 (> 60); eGFR For Non-African Americans > 60 (> 60)
[2019-12-21] MEDS: *HR* Metformin 500 MG TABLET PO SCH ×2 (08:06→16:20)
[2019-12-21] MEDS: amLODIPine 5 MG TABLET PO SCH (08:06)
[2019-12-21] MEDS: lisinopriL 5 MG TABLET PO SCH (08:07)
[2019-12-21] MEDS: Magnesium Oxide 400 MG TABLET PO SCH (08:07)
[2019-12-21] MEDS: Nystatin SUSP 5 ML UD.LIQ PO SCH ×4 (08:07→21:03)
[2019-12-21] MEDS: Aspirin 81 MG TAB.CHEW PO SCH (08:07)
[2019-12-21] MEDS: Insulin DETEMIR 100 UNIT/ML X5UNITS SQ SCH ×3 (08:07→21:06)
[2019-12-21] MEDS: Insulin LISPRO 300 UNITS/3 ML VIAL SQ SCH ×4 (08:08→21:05)
[2019-12-21] MEDS: QUEtiapine Fumarate 300 MG TABLET PO SCH (21:03)
[2019-12-21] MEDS: Gabapentin 300 MG CAPSULE PO SCH (21:04)
[2019-12-22] MEDS: Ipratropium 1 PUFF INHALER IH SCH ×4 (04:21→21:09)
[2019-12-22] MEDS: Nystatin SUSP 5 ML UD.LIQ PO SCH ×4 (08:22→21:13)
[2019-12-22] MEDS: *HR* Metformin 500 MG TABLET PO SCH ×2 (08:23→16:22)
[2019-12-22] MEDS: lisinopriL 5 MG TABLET PO SCH (08:23)
[2019-12-22] MEDS: Aspirin 81 MG TAB.CHEW PO SCH (08:23)
[2019-12-22] MEDS: amLODIPine 5 MG TABLET PO SCH (08:23)
[2019-12-22] MEDS: Magnesium Oxide 400 MG TABLET PO SCH (08:23)
[2019-12-22] MEDS: Insulin DETEMIR 100 UNIT/ML X5UNITS SQ SCH ×2 (08:24→21:15)
[2019-12-22] MEDS: Insulin LISPRO 300 UNITS/3 ML VIAL SQ SCH ×4 (08:24→21:16)
[2019-12-22] MEDS: levoFLOXacin 750 MG/150 ML 750 MG/150 ML BAG IVPB SCH (16:22)
[2019-12-22] MEDS: Gabapentin 300 MG CAPSULE PO SCH (21:14)
[2019-12-22] MEDS: QUEtiapine Fumarate 300 MG TABLET PO SCH (21:14)
[2019-12-23] MEDS: Ipratropium 1 PUFF INHALER IH SCH ×4 (03:56→21:16)
[2019-12-23 05:29] LABS: Hematocrit 28.7 % (35.3-44.9); Hemoglobin 9.3 g/dL (11.5-15.4); Mean Corpuscular HGB Conc 32.4 g/dL (31.6-35.5); Mean Corpuscular Hemoglobin 30.2 pg (28.0-33.3); Mean Corpuscular Volume 93.2 fL (83.0-100.0); Platelet Count 439 K/mcL (140-400); Red Blood Count 3.08 M/mcL (3.82-4.97); Red Cell Distribution Width 13.5 % (11.5-14.5); White Blood Count 6.5 K/mcL (4.3-11.1)
[2019-12-23 05:44] LABS: BUN/Creatinine Ratio 11 (6-26); Blood Urea Nitrogen 9 mg/dL (8-23); Calcium 8.6 mg/dL (8.6-10.3); Carbon Dioxide 35 mEq/L (23-29); Chloride 103 mEq/L (98-107); Glucose 68 mg/dL (70-105); Magnesium 1.6 mg/dL (1.6-2.6); Osmolality,Calculated 289 (280-300); Sodium 141 mEq/L (136-145); eGFR For African Americans > 60 (> 60); eGFR For Non-African Americans > 60 (> 60)
[2019-12-23] MEDS: Nystatin SUSP 5 ML UD.LIQ PO SCH ×4 (07:41→21:54)
[2019-12-23] MEDS: Aspirin 81 MG TAB.CHEW PO SCH (07:42)
[2019-12-23] MEDS: lisinopriL 5 MG TABLET PO SCH (07:42)
[2019-12-23] MEDS: Magnesium Oxide 400 MG TABLET PO SCH (07:42)
[2019-12-23] MEDS: amLODIPine 5 MG TABLET PO SCH (07:43)
[2019-12-23] MEDS: Insulin LISPRO 300 UNITS/3 ML VIAL SQ SCH ×4 (07:49→21:55)
[2019-12-23] MEDS: *HR* Metformin 500 MG TABLET PO SCH ×2 (07:49→16:45)
[2019-12-23] MEDS: Insulin DETEMIR 100 UNIT/ML X5UNITS SQ SCH ×2 (07:50→21:55)
[2019-12-23] MEDS: QUEtiapine Fumarate 300 MG TABLET PO SCH (21:54)
[2019-12-23] MEDS: Gabapentin 300 MG CAPSULE PO SCH (21:54)
[2019-12-24] MEDS: Ipratropium 1 PUFF INHALER IH SCH ×4 (03:22→21:45)
[2019-12-24] MEDS: amLODIPine 5 MG TABLET PO SCH (08:30)
[2019-12-24] MEDS: Insulin DETEMIR 100 UNIT/ML X5UNITS SQ SCH ×2 (08:30→21:38)
[2019-12-24] MEDS: lisinopriL 5 MG TABLET PO SCH (08:31)
[2019-12-24] MEDS: Insulin LISPRO 300 UNITS/3 ML VIAL SQ SCH ×4 (08:31→21:38)
[2019-12-24] MEDS: Aspirin 81 MG TAB.CHEW PO SCH (08:31)
[2019-12-24] MEDS: Nystatin SUSP 5 ML UD.LIQ PO SCH ×4 (08:31→21:35)
[2019-12-24] MEDS: Magnesium Oxide 400 MG TABLET PO SCH (08:31)
[2019-12-24] MEDS: *HR* Metformin 500 MG TABLET PO SCH ×2 (08:31→17:10)
[2019-12-24] MEDS: levoFLOXacin 750 MG/150 ML 750 MG/150 ML BAG IVPB SCH (17:06)
[2019-12-24] MEDS: QUEtiapine Fumarate 300 MG TABLET PO SCH (21:33)
[2019-12-24] MEDS: Gabapentin 300 MG CAPSULE PO SCH (21:35)
[2019-12-25] MEDS: Ipratropium 1 PUFF INHALER IH SCH ×4 (04:27→21:59)
[2019-12-25] MEDS: Insulin LISPRO 300 UNITS/3 ML VIAL SQ SCH ×4 (09:11→21:12)
[2019-12-25] MEDS: Nystatin SUSP 5 ML UD.LIQ PO SCH ×4 (10:02→21:16)
[2019-12-25] MEDS: Magnesium Oxide 400 MG TABLET PO SCH (10:02)
[2019-12-25] MEDS: *HR* Metformin 500 MG TABLET PO SCH ×2 (10:03→18:17)
[2019-12-25] MEDS: lisinopriL 5 MG TABLET PO SCH (10:03)
[2019-12-25] MEDS: Aspirin 81 MG TAB.CHEW PO SCH (10:03)
[2019-12-25] MEDS: amLODIPine 5 MG TABLET PO SCH (10:03)
[2019-12-25] MEDS: Insulin DETEMIR 100 UNIT/ML X5UNITS SQ SCH ×2 (10:04→21:19)
[2019-12-25] MEDS: QUEtiapine Fumarate 300 MG TABLET PO SCH (21:15)
[2019-12-25] MEDS: Gabapentin 300 MG CAPSULE PO SCH (21:16)
[2019-12-26] MEDS: Ipratropium 1 PUFF INHALER IH SCH ×4 (03:47→21:21)
[2019-12-26] MEDS: *HR* Metformin 500 MG TABLET PO SCH ×2 (08:45→17:19)
[2019-12-26] MEDS: Aspirin 81 MG TAB.CHEW PO SCH (08:45)
[2019-12-26] MEDS: Magnesium Oxide 400 MG TABLET PO SCH (08:45)
[2019-12-26] MEDS: Insulin LISPRO 300 UNITS/3 ML VIAL SQ SCH ×4 (08:46→20:28)
[2019-12-26] MEDS: amLODIPine 5 MG TABLET PO SCH (08:46)
[2019-12-26] MEDS: Nystatin SUSP 5 ML UD.LIQ PO SCH (08:46)
[2019-12-26] MEDS: lisinopriL 5 MG TABLET PO SCH (08:47)
[2019-12-26] MEDS: Insulin DETEMIR 100 UNIT/ML X5UNITS SQ SCH ×2 (09:27→20:28)
[2019-12-26] MEDS: QUEtiapine Fumarate 300 MG TABLET PO SCH (20:00)
[2019-12-26] MEDS: Gabapentin 300 MG CAPSULE PO SCH (20:01)
[2019-12-27] MEDS: Ipratropium 1 PUFF INHALER IH SCH ×4 (04:00→21:00)
[2019-12-27] MEDS: Insulin LISPRO 300 UNITS/3 ML VIAL SQ SCH ×4 (08:44→21:20)
[2019-12-27] MEDS: Aspirin 81 MG TAB.CHEW PO SCH (08:45)
[2019-12-27] MEDS: amLODIPine 5 MG TABLET PO SCH (08:45)
[2019-12-27] MEDS: lisinopriL 5 MG TABLET PO SCH (08:46)
[2019-12-27] MEDS: *HR* Metformin 500 MG TABLET PO SCH ×2 (08:46→16:55)
[2019-12-27] MEDS: Magnesium Oxide 400 MG TABLET PO SCH (08:46)
[2019-12-27] MEDS: Insulin DETEMIR 100 UNIT/ML X5UNITS SQ SCH ×2 (09:49→21:20)
[2019-12-27] MEDS: QUEtiapine Fumarate 300 MG TABLET PO SCH (21:18)
[2019-12-27] MEDS: Gabapentin 300 MG CAPSULE PO SCH (21:19)
[2019-12-28] MEDS: Ipratropium 1 PUFF INHALER IH SCH ×4 (03:47→22:04)
[2019-12-28] MEDS: Magnesium Oxide 400 MG TABLET PO SCH (08:46)
[2019-12-28] MEDS: Aspirin 81 MG TAB.CHEW PO SCH (08:46)
[2019-12-28] MEDS: lisinopriL 5 MG TABLET PO SCH (08:46)
[2019-12-28] MEDS: Insulin DETEMIR 100 UNIT/ML X5UNITS SQ SCH ×2 (08:46→22:07)
[2019-12-28] MEDS: amLODIPine 5 MG TABLET PO SCH ×2 (08:46→22:02)
[2019-12-28] MEDS: *HR* Metformin 500 MG TABLET PO SCH ×2 (08:46→17:15)
[2019-12-28] MEDS: Insulin LISPRO 300 UNITS/3 ML VIAL SQ SCH ×4 (08:53→22:16)
[2019-12-28] MEDS: QUEtiapine Fumarate 300 MG TABLET PO SCH (22:00)
[2019-12-28] MEDS: Gabapentin 300 MG CAPSULE PO SCH (22:01)
[2019-12-29] MEDS: Ipratropium 1 PUFF INHALER IH SCH ×4 (04:54→21:25)
[2019-12-29] MEDS: Insulin LISPRO 300 UNITS/3 ML VIAL SQ SCH ×4 (08:07→21:36)
[2019-12-29] MEDS: lisinopriL 5 MG TABLET PO SCH (09:34)
[2019-12-29] MEDS: *HR* Metformin 500 MG TABLET PO SCH ×2 (09:34→17:29)
[2019-12-29] MEDS: Magnesium Oxide 400 MG TABLET PO SCH (09:34)
[2019-12-29] MEDS: Aspirin 81 MG TAB.CHEW PO SCH (09:34)
[2019-12-29] MEDS: Insulin DETEMIR 100 UNIT/ML X5UNITS SQ SCH ×2 (09:38→21:33)
[2019-12-29] MEDS: Gabapentin 300 MG CAPSULE PO SCH (21:29)
[2019-12-29] MEDS: QUEtiapine Fumarate 300 MG TABLET PO SCH (21:30)
[2019-12-29] MEDS: amLODIPine 5 MG TABLET PO SCH (21:30)
[2019-12-30] MEDS: Ipratropium 1 PUFF INHALER IH SCH ×4 (04:07→21:52)
[2019-12-30] MEDS: Magnesium Oxide 400 MG TABLET PO SCH (08:40)
[2019-12-30] MEDS: *HR* Metformin 500 MG TABLET PO SCH ×2 (08:40→16:56)
[2019-12-30] MEDS: lisinopriL 5 MG TABLET PO SCH (08:40)
[2019-12-30] MEDS: Aspirin 81 MG TAB.CHEW PO SCH (08:40)
[2019-12-30] MEDS: Insulin LISPRO 300 UNITS/3 ML VIAL SQ SCH ×4 (08:40→21:41)
[2019-12-30] MEDS: Insulin DETEMIR 100 UNIT/ML X5UNITS SQ SCH ×2 (09:17→22:13)
[2019-12-30] MEDS: amLODIPine 5 MG TABLET PO SCH (21:42)
[2019-12-30] MEDS: Gabapentin 300 MG CAPSULE PO SCH (22:02)
[2019-12-30] MEDS: QUEtiapine Fumarate 300 MG TABLET PO SCH (22:04)
[2019-12-31] MEDS: Ipratropium 1 PUFF INHALER IH SCH ×2 (03:56→09:43)
[2019-12-31 07:19] VITALS: BP 100/54
[2019-12-31] MEDS: lisinopriL 5 MG TABLET PO SCH (08:14)
[2019-12-31] MEDS: Aspirin 81 MG TAB.CHEW PO SCH (08:15)
[2019-12-31] MEDS: Insulin LISPRO 300 UNITS/3 ML VIAL SQ SCH ×2 (08:15→11:40)
[2019-12-31] MEDS: Magnesium Oxide 400 MG TABLET PO SCH (08:15)
[2019-12-31] MEDS: *HR* Metformin 500 MG TABLET PO SCH (08:15)
[2019-12-31] MEDS: Insulin DETEMIR 100 UNIT/ML X5UNITS SQ SCH (10:03)
== END 2019-12-31 11:48 | disposition home health service (06) | DRG 637 ==
LOC: INPGRE 16:28
PROVIDERS: ADMIT Family Medicine; ATTEND Family Medicine